=== PATIENT | male | born 1975 ===

== ENCOUNTER 2023-09-26 14:54 | Outpatient (CLI) | payer BC, OTHER, SELFPAY ==
--- NOTE | ~2023-09-26 | MR_ITS ---
EXAMINATION: MR elbow RT wo con DATE: 09/26/2023 16:19 INDICATION: Right elbow pain TECHNIQUE: Magnetic resonance imaging (MRI) of the right elbow was performed without intravenous cont rast. Sequences included coronal, axial, and sagittal PD-weighted FS FSE and coronal, axial, and sagi ttal PD-weighted FSE. COMPARISON: None FINDINGS: Osseous/other: Normal alignment. Normal marrow signal with no marrow edema, fracture, osteochondral lesion or abnor mal marrow replacing process. 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 Tendons: Triceps and brachialis tendons are normal. There is moderate tendinopathy and high-grade partial tear of the radial insertion of the distal biceps brachii tendon. The tear involves approximately 2/3-3/4 of the cross-sectional area of the tendon with up to 1 cm retraction of the torn portion of the tend on. Mild soft tissue edema about the fracture with small amount of fluid tracking proximally along th e tendon to the level of the myotendinous junction. Common flexor tendon wad is normal. The common ex tensor tendon wad is normal. Ligaments: The medial and lateral collateral ligament complexes are normal. Cubital tunnel: Cubital tunnel is unremarkable with normal signal and caliber of the ulnar nerve. Fluid: Physiologic amount of fluid the elbow joint. IMPRESSION: 1. Moderate tendinopathy and high-grade partial tear of the distal biceps brachii tendon. Reviewed, dictated and finalized at location A. IMPRESSION: 1. Moderate tendinopathy and high-grade partial tear of the distal biceps brach ii tendon.
== END 2023-09-26 14:55 ==
LOC: GOSHIMG 14:56
PROVIDERS: PCP Family Medicine; Visit Provider Family Medicine
DX: M67.823 Other specified disorders of tendon, right elbow (principal); S46.211A Strain of muscle, fascia and tendon of other parts of biceps, right arm, initial encounter; X58.XXXA Exposure to other specified factors, initial encounter
CPT/HCPCS: 73221